=== PATIENT | male | born 1935 | race Caucasian/White ===

== ENCOUNTER 2024-05-13 08:48 | Emergency (ER) | payer MEDICARE, SELFPAY ==
[2024-05-13] VITALS (10 sets, daily range): BP systolic 113–150; BP diastolic 62–79; PULSE 70–81; RESP 16–18; TEMP 36.4–36.8; O2SAT 95–98; BMI 29.6
--- NOTE | ~2024-05-13 | CT_ITS ---
EXAMINATION: CT OF THE HEAD WITHOUT CONTRAST CT OF THE CERVICAL SPINE WITHOUT CONTRAST CLINICAL INFORMATION: Weakness. Fall.. COMPARISON: None. TECHNIQUE: Contiguous axial imaging was performed from the skullbase to vertex without intravenous administration of contrast. Coronal reformations of the head were obtained. Contiguous axial imaging was then performed from the skull base down to the thoracic inlet. Coronal and sagittal reformations of the cervical spine were obtained. This CT examination was performed using dose optimization techniques as appropriate, variously including the following: *Automated exposure control *Adjustment of mA and/or kV according to patient size (this includes techniques or standardized protocols for targeted exams where dose is matched to indication/reason for exam; i.e. extremities or head) *Use of iterative reconstruction technique DLP: CT scan of the head: 689.98 mGy-cm. CT scan of the cervical spine: 419.37 FINDINGS: CT scan of the head: There is a large right subdural hematoma along the right cerebral convexity with varying degrees of densities seen, including hyperdense components, consistent with the acute on chronic subdural hematoma. The collection measures up to 2.3 cm in thickness and causes significant mass effect upon the underlying brain with loss of the sulci and significant midline subfalcine shift from right to left by approximately 0.8 cm. There is partial effacement of the frontal horn of the right lateral ventricle and near complete effacement of the posterior horn of the right lateral ventricle. There is mild effacement of the third ventricle. There is no evidence of acute territorial infarction. Daily to white matter differentiation is well preserved. There is underlying involutional change in the brain parenchyma with enlargement of the ventricles and sulci are seen. There is no abnormal attenuation within the brain parenchyma. The osseous structures and soft tissues are normal. The mastoid air cells and visualized portions of the paranasal sinuses are well-aerated. CT scan of the cervical spine: Normal alignment is seen with no evidence of acute fracture or dislocation. Craniocervical junction and atlantoaxial articulations are intact with moderate degenerative changes seen. Prevertebral soft tissues are normal in thickness. There is moderate to severe degenerative disc disease at C4-5, see 6 7 and C7-T1 with disc space narrowing, vertebral endplate sclerosis, spurring and vacuum disc phenomenon. Mild degenerative disc disease is seen at the remaining cervical levels. There is mild to moderate facet arthropathy in the mid and lower cervical spine bilaterally. The included soft tissues of the neck and lung apices are poorly assessed due to extensive beam hardening artifact and motion artifact, but are grossly unremarkable. 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 Partial effacement of the right lateral ventricle and third ventricle noted. CT SCAN OF THE CERVICAL SPINE: 1. No evidence of cervical spine fracture or malalignment. 2. Moderate to severe degenerative disc disease and facet arthropathy in the mid and lower cervical spine. This critical result was discussed with Dr. Rebekah Johnson 05/13/2024, 12:14 PM and it was ascertained that the content and urgency of this report was understood at the time of direct communication.
--- NOTE | 2024-05-13 09:08 | ECG_ITS ---
Test Reason : FALL Blood Pressure : / mmHG Vent. Rate : 068 BPM Atrial Rate : 000 BPM P-R Int : 000 ms QRS Dur : 122 ms QT Int : 400 ms P-R-T Axes : 000 -45 116 degrees QTc Int : 425 ms Atrial fibrillation Left anterior fascicular block Minimal voltage criteria for LVH, may be normal variant ( [place] product ) Cannot rule out Inferior infarct , age undetermined Cannot rule out Anterior infarct , age undetermined ST & T wave abnormality, consider lateral ischemia Abnormal ECG No previous ECGs available Referred By: Rebekah Johnsno Electronically Signed By:LACY LEON MD
[2024-05-13 09:10] LABS: Glucose, Whole Blood 103 mg/dL (60-115)
--- NOTE | 2024-05-13 09:11 | ED_ITS ---
HPI - Weakness General Chief complaint: Fall Stated complaint: UNWIT FALL, THINNERS, +CCOLLAR Time Seen by Provider: 05/13/24 08:51 Source: patient, family, EMS and old records reviewed Mode of arrival: EMS Limitations: no limitations History of Present Illness ED Provider: CHERISE HPI Narrative: 88 yo male with PMH of HTN, afib on coumadin here with c/o feeling weak on and off today slid out of his chair and onto floor no LOC no head trauma no CP/SOB was awake and on the floor for 3 hours. He denies CP/SOB or GIB symptoms. He states he feels fine but would like to get PT and go to rehab. He lives in independent living with his daughter and here - notes he has fallen x 3 denies headstrike, daughter does not live here she is out of state, both of them report intermittent confusion and he leans when he walks MD Complaint: generalized weakness Onset (ago): week(s) (2+) Duration: constant Location: generalized Migration: none Severity: mild Relieving factors: rest Exacerbating factors: movement and exertion Associated symptoms: denies other symptoms Related Data Allergies Allergy/AdvReac Type Severity Reaction Status Date / Time No Known Allergies Allergy Verified 05/13/24 09:02 Review of Systems 2 Review of Systems: Constitutional : No Fever, No Chills, No Fatigue ENT/Mouth : No sore throat, No Rhinorrhea Eyes: No Eye Pain, No Swelling, No Redness Cardiovascular : No Chest Pain, No SOB, No Dyspnea on Exertion Respiratory : No Cough, No Sputum Gastrointestinal : No Nausea, No Vomiting, No Diarrhea, No abdominal Pain Genitourinary : No Dysuria, No Urinary Frequency, No Hematuria, Musculoskeletal : No joint pain, No Myalgias, No Joint Swelling Skin : No Skin Lesions, No rash Neuro : pos Weakness, No Numbness, No Dizziness, no Headache Psych : No Anxiety/Panic, No Depression All other systems reviewed and are negative [facility] Past Medical History Attestation statement: The following information was validated with the patient. Source: old records reviewed Medical History (Updated 05/13/24 @ 10:57 by Rebekah Johnson DO) HTN (hypertension) Afib Social History Social History Smoked in Last 30 Days: No Use of substances other than those prescribed or required for medical reasons: No Advance Directives: No Advance Directives Information Provided: No Physical Exam 2 Vital Signs: Vital Signs: Last Vital Signs Temp 98.0 F 05/13/24 12:57 Pulse 76 05/13/24 12:57 Resp 17 05/13/24 12:57 BP 132/66 05/13/24 12:57 Pulse Ox 96 05/13/24 12:57 O2 Del Method Room Air 05/13/24 12:57 BMI result Body Mass Index 29.6 Appearance: Alert. Oriented X3. No acute distress. Eyes: Pupils equal, round and reactive to light. ENT: Pharynx normal. atraumatic Neck: Normal inspection. Neck supple. no midline ttp CVS: irregular heart rate and rhythm. Pulses normal. Respiratory: No respiratory distress. Breath sounds normal. Abdomen: Soft and nontender. Skin: Skin warm and dry. Normal skin color. Normal skin turgor. Extremities: No lower extremity edema. No calf ttp Neuro: Oriented X 3. No motor deficit. No sensory deficit. 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 and has a hard time standing. he is GCS 15 he has no external signs of head trauma INR 2.9 ordered PCC to reverse SDH family aware of risks ordered given shift and SDH. Reevaluation(s) Reevaluation #1: family initially declined CT cervical spine as they did not believe he had ICH - I did show them the CT scan reads and they finally agree to cervical spine imaging Reevaluation #2: accepted to [facility] Dr. Freed will call back with [facility] bed 1224pm Reevaluation #3: no acute deficits at this time remains the same 311pm Additional Reevaluation(s): 356pm recheck exam left leg plantar and dorsiflexion intact but he really cannot lift leg - transfer center to leg NSGY PA Medications Administered Discontinued Medications Generic Name Dose Route Start Last Admin Trade Name Freq PRN Reason Stop Dose Admin Prothrombin Complex Concent ( 100 mls @ 480 mls/hr 05/13/24 10:48 05/13/24 11:55 Human) 2,500 unit/ IV IV 05/13/24 11:00 Infused Miscellaneous Supplies .Q13M ONE Infusion Medical Decision Making Medical Decision Making [facility] Narrative: 88 yo male with afib on coumadin, HTN here with c/o weakness, slide out of bed denies trauma wants to go to rehab will need labs, EKG, CT head / cspine given coumadin use (no external trauma but he is 88 yo) denies neck trauma or any other trauma. No signs of dehydration. Overall looks not toxic. Once medically cleared will refer to CM/PT. Differential Diagnosis Differential Diagnoses: The differential diagnosis associated with the presentation includes weakness, FTT Admission/Observation Consideration of admission/observation: Escalation of care including admission/observation considered call to [facility] transfer line 1150am spoke to MIGUEL ANGEL PA - agrees with shane transfer possible to [facility] 1201pm on for tomorrow for surgical intervention admit [facility] for q2 hour checks page MIGUEL ANGEL when he gets there 1214pm Consult Healthcare Provider Management of the patient was discussed with: Director Of Promotions Lab Data [facility] Lab Attestation statement: I reviewed the patient's lab results. 05/13/24 10:15 05/13/24 10:15 Labs: Lab Results 05/13/24 05/13/24 05/13/24 Range/Units 09:01 10:15 12:12 WBC 5.8 (4.8-10.8) X10*3/uL RBC 4.48 L (4.60-5.80) X10*6/uL Hgb 13.4 L (14.0-18.0) g/dl Hct 40.6 L (42.0-52.0) % MCV 90.6 (80.0-98.0) fL MCH 29.9 (27.0-33.0) pg MCHC 33.0 (31.0-36.0) g/dl RDW 13.5 (11.0-16.0) % Plt Count 118 L (160-400) X10*3/uL MPV 11.4 (9.4-12.4) fL Immature Gran % (Auto) 1.2 H (0.0-0.4) % Neut % (Auto) 50.0 (45-73) % Lymph % (Auto) 23.5 (20-40) % [place] % (Auto) 23.7 H (2-11) % Eos % (Auto) 1.4 (0-4) % Baso % (Auto) 0.2 (0-2) % Lymph # (Auto) 1.4 (1.2-4.9) X10*3/uL [place] # (Auto) 1.4 H (0.1-1.2) X10*3/uL Eos # (Auto) 0.1 (0.0-0.4) X10*3/uL Baso # (Auto) 0.0 (0.0-0.2) X10*3/uL Abs Immat Gran (auto) 0.07 H (0.00-0.03) X10*3/uL Absolute Neuts (auto) 2.9 (2.0-8.3) x10*3/uL Absolute Nucleated RBC 0.000 (0.0-0.012) X10*3/uL Nucleated RBC % (auto) 0.0 (0.0-0.2) /100WBC Smear Tech's Comments VERIFIED PT 35.6 H (11.1-13.3) SEC INR 2.9 H (0.9-1.1) Sodium 139 (135-145) mmol/L Potassium 4.4 (3.3-5.1) mmol/L Chloride 105 (96-108) mmol/L Carbon Dioxide 27 (22-29) mmol/L Anion Gap 11 L (12-20) BUN 19 H (9-16) mg/dL Creatinine 0.81 (0.5-1.4) mg/dL Estim Creat Clear Calc 71.5 Estimated GFR > 60 POC Glucose 103 (60-115) mg/dL Random Glucose 112 (60-115) mg/dL Calcium 8.9 (8.4-10.2) mg/dL Magnesium 2.1 (1.6-2.6) mg/dL Total Bilirubin 0.7 (0.0-1.0) mg/dL Direct Bilirubin 0.3 (0.0-0.5) mg/dL AST 12 (5-37) U/L ALT 14 (0-40) U/L Alkaline Phosphatase 67 (39-117) U/L Total Creatine Kinase 23 L (38-174) U/L Troponin I High Sens 4.9 (<3.5-35.0) ng/L Total Protein 6.4 L (6.5-8.0) g/dL Albumin 3.6 (3.5-5.0) g/dL Urine Color Urine Appearance Urine pH (5.0-9.0) Ur Specific [place] (1.005-1.025) Urine Protein (Neg-Trace) mg/dL Urine Glucose (UA) (Negative) mg/dL Urine Ketones (Negative) mg/dL Urine Blood (Negative) Urine Nitrite (Negative) Ur Leukocyte Esterase (Negative) COVID-19 (MARISOL) Negative (Negative) COVID-19 Clin Com See Note 05/13/24 Range/Units 13:01 WBC (4.8-10.8) X10*3/uL RBC (4.60-5.80) X10*6/uL Hgb (14.0-18.0) g/dl Hct (42.0-52.0) % MCV (80.0-98.0) fL MCH (27.0-33.0) pg MCHC (31.0-36.0) g/dl RDW (11.0-16.0) % Plt Count (160-400) X10*3/uL MPV (9.4-12.4) fL Immature Gran % (Auto) (0.0-0.4) % Neut % (Auto) (45-73) % Lymph % (Auto) (20-40) % [place] % (Auto) (2-11) % Eos % (Auto) (0-4) % Baso % (Auto) (0-2) % Lymph # (Auto) (1.2-4.9) X10*3/uL [place] # (Auto) (0.1-1.2) X10*3/uL Eos # (Auto) (0.0-0.4) X10*3/uL Baso # (Auto) (0.0-0.2) X10*3/uL Abs Immat Gran (auto) (0.00-0.03) X10*3/uL Absolute Neuts (auto) (2.0-8.3) x10*3/uL Absolute Nucleated RBC (0.0-0.012) X10*3/uL Nucleated RBC % (auto) (0.0-0.2) /100WBC Smear Tech's Comments PT (11.1-13.3) SEC INR (0.9-1.1) Sodium (135-145) mmol/L Potassium (3.3-5.1) mmol/L Chloride (96-108) mmol/L Carbon Dioxide (22-29) mmol/L Anion Gap (12-20) BUN (9-16) mg/dL Creatinine (0.5-1.4) mg/dL Estim Creat Clear Calc Estimated GFR POC Glucose (60-115) mg/dL Random Glucose (60-115) mg/dL Calcium (8.4-10.2) mg/dL Magnesium (1.6-2.6) mg/dL Total Bilirubin (0.0-1.0) mg/dL Direct Bilirubin (0.0-0.5) mg/dL AST (5-37) U/L ALT (0-40) U/L Alkaline Phosphatase (39-117) U/L Total Creatine Kinase (38-174) U/L Troponin I High Sens (<3.5-35.0) ng/L Total Protein (6.5-8.0) g/dL Albumin (3.5-5.0) g/dL Urine Color Yellow Urine Appearance Clear Urine pH 6.0 (5.0-9.0) Ur Specific [place] 1.020 (1.005-1.025) Urine Protein Trace (Neg-Trace) mg/dL Urine Glucose (UA) Negative (Negative) mg/dL Urine Ketones Negative (Negative) mg/dL Urine Blood Negative (Negative) Urine Nitrite Negative (Negative) Ur Leukocyte Esterase Negative (Negative) COVID-19 (MARISOL) (Negative) COVID-19 Clin Com Independent Interpretation I performed an independent interpretation of an: EKG and CT Scan Interpretation: Rate: 68 Rhythm: afib [place]: left Normal QRS complex. ST T wave : no TAWNYA, inverated t waves I and avl qTC: 425 prior studies: no prior The study has been interpreted contemporaneously by me. FINDINGS: CT scan of the head: There is a large right subdural hematoma along the right cerebral convexity with varying degrees of densities seen, including hyperdense components, consistent with the acute on chronic subdural hematoma. The collection measures up to 2.3 cm in thickness and causes significant mass effect upon the underlying brain with loss of the sulci and significant midline subfalcine shift from right to left by approximately 0.8 cm. There is partial effacement of the frontal horn of the right lateral ventricle and near complete effacement of the posterior horn of the right lateral ventricle. There is mild effacement of the third ventricle. There is no evidence of acute territorial infarction. Daily to white matter differentiation is well preserved. There is underlying involutional change in the brain parenchyma with enlargement of the ventricles and sulci are seen. There is no abnormal attenuation within the brain parenchyma. The osseous structures and soft tissues are normal. The mastoid air cells and visualized portions of the paranasal sinuses are well-aerated. CT scan of the cervical spine: Normal alignment is seen with no evidence of acute fracture or dislocation. Craniocervical junction and atlantoaxial articulations are intact with moderate degenerative changes seen. Prevertebral soft tissues are normal in thickness. There is moderate to severe degenerative disc disease at C4-5, see 6 7 and C7-T1 with disc space narrowing, vertebral endplate sclerosis, spurring and vacuum disc phenomenon. Mild degenerative disc disease is seen at the remaining cervical levels. There is mild to moderate facet arthropathy in the mid and lower cervical spine bilaterally. The included soft tissues of the neck and lung apices are poorly assessed due to extensive beam hardening artifact and motion artifact, but are grossly unremarkable. 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 Partial effacement of the right lateral ventricle and third ventricle noted. CT SCAN OF THE CERVICAL SPINE: 1. No evidence of cervical spine fracture or malalignment. 2. Moderate to severe degenerative disc disease and facet arthropathy in the mid and lower cervical spine. Radiology Impression Discussion of test interpretation with radiology: I discussed test interpretation with the radiologist and I have reviewed the radiologist's reading. 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 History obtained from or confirmed by: EMS Critical Care Time Critical Care Time Critical Care Time: Yes Total Critical Care Time: 60 Attestation: repeat assessments, review of imaging, reversal of coumadin, transfer to tertiary center discussion with family I attest to this time spent taking care of the patient Discharge Plan Discharge Clinical Impression: Weakness, SDH (subdural hematoma) Patient Disposition: [facility] Transfer Details: [facility] Print Language: Indonesian
[2024-05-13 10:29] LABS: INTERNATIONAL NORM RATIO 2.9 (0.9-1.1); Prothrombin Time 35.6 SEC (11.1-13.3)
[2024-05-13 10:32] LABS: Basophils Percent Auto 0.2 % (0-2); Eosinophils Absolute Auto 0.1 X10*3/uL (0.0-0.4); Eosinophils Percent Auto 1.4 % (0-4); Hematocrit 40.6 % (42.0-52.0); Hemoglobin 13.4 g/dl (14.0-18.0); Imm Gran Abs Auto 0.07 X10*3/uL (0.00-0.03); Imm Gran Pct Auto 1.2 % (0.0-0.4); Lymphocytes Absolute Auto 1.4 X10*3/uL (1.2-4.9); Lymphocytes Percent Auto 23.5 % (20-40); MANUAL DIFF FLAG SCAN; Mean Corpuscular Hemoglobin 29.9 pg (27.0-33.0); Mean Corpuscular Volume 90.6 fL (80.0-98.0); Mean Platelet Volume 11.4 fL (9.4-12.4); Monocytes Absolute Auto 1.4 X10*3/uL (0.1-1.2); Monocytes Percent Auto 23.7 % (2-11); Neutrophils Absolute Auto 2.9 x10*3/uL (2.0-8.3); Platelet Count 118 X10*3/uL (160-400); Red Blood Count 4.48 X10*6/uL (4.60-5.80); Red Cell Distribution Width 13.5 % (11.0-16.0); SCAN SMEAR FLAG 1; White Blood Count 5.8 X10*3/uL (4.8-10.8)
[2024-05-13 10:42] LABS: Alanine Aminotransferase 14 U/L (0-40); Albumin Level 3.6 g/dL (3.5-5.0); Alkaline Phosphatase 67 U/L (39-117); Anion Gap 11 (12-20); Aspartate Amino Transferase 12 U/L (5-37); Bilirubin Direct 0.3 mg/dL (0.0-0.5); Bilirubin Total 0.7 mg/dL (0.0-1.0); Blood Urea Nitrogen 19 mg/dL (9-16); Calcium 8.9 mg/dL (8.4-10.2); Carbon Dioxide 27 mmol/L (22-29); Chloride 105 mmol/L (96-108); Creatinine Clr Calc Pharmacy 71.5; Estimated Glomerular Filt Rate > 60; Glucose Random 112 mg/dL (60-115); Magnesium 2.1 mg/dL (1.6-2.6); Potassium 4.4 mmol/L (3.3-5.1); Sodium 139 mmol/L (135-145); Total Protein 6.4 g/dL (6.5-8.0)
[2024-05-13 10:46] LABS: SLIDE REVIEW VERIFIED
[2024-05-13 10:50] LABS: Troponin-I High Sensitivity 4.9 ng/L (<3.5-35.0)
--- NOTE | 2024-05-13 11:12 | PC.NURSE ---
only neuro sx family can think of is that patient has been listing left when seated.
--- NOTE | 2024-05-13 11:18 | PC.NURSE ---
last po. was sip of coffee from family aprox 1045. RN entered and stopped them
[2024-05-13] MEDS: Hum Prothrombin Cplx(PCC)4Fact 2,500 UNIT in Container,Empty 0 ML 480 UNIT IV (11:42)
[2024-05-13 12:30] LABS: COVID-19 Test Negative (Negative); IDNOW Serial# 08D9AD1C
[2024-05-13 13:14] LABS: Appearance Urine Clear; Color Urine Yellow; Glucose Urine UA Negative (Negative); Leukocyte Esterase Urine Negative (Negative); Nitrite Urine Negative (Negative); Urine Blood Negative (Negative); Urine Ketones Negative (Negative); Urine Protein Trace mg/dL (Neg-Trace)
--- NOTE | 2024-05-13 14:17 | PC.NURSE ---
no change in patient complaints. ne headache. no nausea, weakness LLE noted.
--- NOTE | 2024-05-13 14:29 | MHC.EDTECH ---
CALLED [facility]
--- NOTE | 2024-05-13 14:30 | MHC.EDTECH ---
CALL [facility] PT PLACEMENT SPOKE WITH YOEL THEY STILL DON'T HAVE BEDS
--- NOTE | 2024-05-13 16:07 | PC.NURSE ---
NO neuro changed. only neuro deficit except LLE weakness.
[2024-05-13 16:22] LABS: Glucose, Whole Blood 101 mg/dL (60-115)
[2024-05-13] MEDS: 0.9 % Sodium Chloride 1,000 ML 80 ML IVCONT (17:10)
[2024-05-13] MEDS: Metoprolol Tartrate 25 MG TABLET PO (17:55)
[2024-05-13] MEDS: lisinopriL 20 MG TABLET PO (17:55)
--- NOTE | 2024-05-13 18:50 | PC.NURSE ---
rn to rn kyrie Garcia at [facility]. Bed is changing and EMS has to wait. kid club attendant aware.
== END 2024-05-13 19:35 | disposition short-term general hospital (02) ==
PROVIDERS: Emergency Provider Emergency Medicine; PCP Internal Medicine
DX: S06.5X0A Traumatic subdural hemorrhage without loss of consciousness, initial encounter (principal); R51.9 Headache, unspecified; M54.2 Cervicalgia; I48.91 Unspecified atrial fibrillation; I10 Essential (primary) hypertension; R53.83 Other fatigue; W07.XXXA Fall from chair, initial encounter; Y93.9 Activity, unspecified; Y92.008 Other place in unspecified non-institutional (private) residence as the place of occurrence of the external cause; Y99.8 Other external cause status; Z79.01 Long term (current) use of anticoagulants; Z91.81 History of falling; Z11.52 Encounter for screening for COVID-19; Z79.899 Other long term (current) drug therapy
CPT/HCPCS: 36415; 70450; 72125; 80048; 80076; 81003; 82550; 82947; 83735; 84484; 85025; 85610; 87635; 93005; 96360; 96361; 96365; 99285; J7168

== ENCOUNTER → 2024-05-13 09:08 | Outpatient (BNV) | payer MEDICARE, SELFPAY | PROVIDERS: Emergency Provider Emergency Medicine; PCP Internal Medicine; Visit Provider Internal Medicine Cardiovascular Disease | DX: R94.31 Abnormal electrocardiogram [ECG] [EKG] (principal) | CPT/HCPCS: 93010 ==

== ENCOUNTER 2025-07-22 10:45 | Emergency (ER) | payer MEDICARE, SELFPAY ==
--- NOTE | ~2025-07-22 | XR_ITS ---
EXAMINATION: XR CHEST CLINICAL INFORMATION: weakness COMPARISON: None available. TECHNIQUE: Frontal view of the chest was obtained. FINDINGS: There is cardiomegaly. Mediastinal contours appear normal. Aortic mural calcifications. There is vascular congestion in the hilar regions bilaterally. Lungs demonstrate hazy interstitial markings bilaterally with Rj B lines in the lateral lung bases, suggesting interstitial edema. There is linear atelectasis or scarring in the left midlung. No pneumothorax or effusion. No focal osseous or soft tissue abnormality. There are degenerative changes in both shoulder joints and throughout the spine. XR/XR chest 1V IMPRESSION: 1. Cardiomegaly with mild interstitial pulmonary edema. No focal pneumonia. Electronically signed by: Rafi Read MD 07/22/2025 12:42 PM EDT
--- NOTE | ~2025-07-22 | CT_ITS ---
EXAMINATION: CT CERVICAL SPINE WITHOUT CONTRAST CLINICAL INFORMATION: Following week ago with persistent neck pain COMPARISON: May 13, 2024 TECHNIQUE: Axial imaging was performed from the base of the skull through T2 without IV contrast. Coronal and sagittal reformatted images were generated from the original axial data set. ALARA: The examination used one or more of the following radiation dose reduction techniques: Automated exposure control, iterative reconstruction, and/or adjustment of mA and/or KV. FINDINGS: There is no prevertebral soft tissue edema. Again noted are multilevel degenerative changes with disc space narrowing most advanced at C6-7 and facet arthropathy most advanced between C3-C5 and C7-T1. No fracture lines are evident. CT/CT cervical spine wo IV con IMPRESSION: Moderate to severe degenerative changes have slightly progressed since the prior. No acute fracture is identified. Electronically signed by: Jacob Howell MD 07/22/2025 12:32 PM EDT
--- NOTE | ~2025-07-22 | CT_ITS ---
EXAMINATION: CT HEAD WITHOUT CONTRAST CLINICAL INFORMATION: Fall one week prior. Rule out bleed, stroke. COMPARISON: 05/13/2024. TECHNIQUE: Contiguous axial imaging was performed from the skull base to vertex without intravenous administration of contrast. This CT examination was performed using dose optimization techniques as appropriate, variously including the following: *Automated exposure control *Adjustment of mA and/or kV according to patient size (this includes techniques or standardized protocols for targeted exams where dose is matched to indication/reason for exam; i.e. extremities or head) *Use of iterative reconstruction technique FINDINGS: There is a very subtle low attenuating right frontal extra-axial fluid collection measuring 2 mm in thickness. There is otherwise no additional evidence of intracranial hemorrhage or extra-axial fluid collection. There is no mass effect, or edema. No CT evidence of acute territorial infarct. Ventricles, sulci, and cisterns are diffusely somewhat prominent, in keeping with age-related cerebral and cerebellar involutional changes. No hydrocephalus. No midline shift. Negative hyperdense MCA sign. Negative insular ribbon sign. Patchy periventricular and deep white matter hypoattenuation is consistent with moderate small vessel ischemic changes. Normal pituitary. Atheromatous calcification of the bilateral carotid siphons and V4 segments vertebral arteries bilaterally. Globes and orbital contents image normally. There are bilateral lens replacements. There are ciliary body calcifications. No extracranial soft tissue abnormalities. The paranasal sinuses, mastoid air cells, and tympanic cavities are normally aerated. No suspicious bony abnormalities. There has been a right parietal craniotomy. There are no acute fractures evident. CT/CT head/brain wo IV con IMPRESSION: 1. Extremely subtle low attenuating right frontal subdural collection measuring 2 mm in thickness. No hyperattenuating component to suggest acute hemorrhage. Unknown if this is chronic sequela from prior subdural hematomas, or represents a more acute process. 2. Otherwise, no additional extra-axial fluid collection or acute intracranial hemorrhage. 3. There has been a right frontoparietal craniotomy. Electronically signed by: Rafi Read MD 07/22/2025 12:34 PM EDT
[2025-07-22 10:58] VITALS: BP 118/80; PULSE 85; O2SAT 94
[2025-07-22 11:00] VITALS: PULSE 90; RESP 18; TEMP 36.7; O2SAT 94; BMI 28.1
[2025-07-22 11:09] VITALS: PULSE 90; RESP 18; TEMP 36.7; O2SAT 94
--- NOTE | 2025-07-22 11:16 | ECG_ITS ---
Test Reason : WEAKNESS Blood Pressure : */* mmHG Vent. Rate : 76 BPM Atrial Rate : * BPM P-R Int : * ms QRS Dur : 132 ms QT Int : 418 ms P-R-T Axes : * -72 75 degrees QTcB Int : 470 ms Atrial fibrillation Left axis deviation Non-specific intra-ventricular conduction block Abnormal ECG When compared with ECG of 13-May-2024 08:59, Nonspecific T wave abnormality has replaced inverted T waves in Lateral leads Referred By: Generic ED Physician Electronically Signed By: Augustine Delgado
--- NOTE | 2025-07-22 11:22 | ED_ITS ---
HPI - Weakness General Chief complaint: Weakness Stated complaint: FALL 1WK,HIT HEAD,REF TX,NOW WEAK EXTREMITIES Time Seen by Provider: 07/22/25 11:22 Source: patient Mode of arrival: EMS Limitations: no limitations History of Present Illness ED Provider: Dr. 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 Patient states he has been feeling weak for proximally 2-3 weeks prior. Both the and his could not recount the exact date of the fall. According to his the patient has had progressive weakness of the past several weeks. The patient does have a home occupational therapist. Patient states that over the last 3 weeks he has noticed increased weakness in his lower extremities whenever he walks 10-15 feet. The occupational therapist evaluated him today and was concerned about his recent fall in his worsening weakness therefore she advised the to call an ambulance and have the patient brought to the emergency department. Patient states that he does have some mild shortness of breath at rest and mild dyspnea on exertion. Patient is on warfarin for his atrial fibrillation. The also states the patient has a heart murmur that has managed by their PCP and business services sales representative, Dr. Corey. He denied fever, chills, cough, chest pain, shortness of breath, nausea, vomiting, diarrhea. He denied dysuria and he states that occasionally has urinary incontinence and urinary frequency especially at night. Related Data Allergies Allergy/AdvReac Type Severity Reaction Status Date / Time No Known Allergies Allergy Verified 07/22/25 11:07 Review of Systems 2 Review of Systems: Yes all other systems are reviewed and are negative FOR[facility]LY [facility] Past Medical History Medical History (Updated 07/22/25 @ 15:06 by Hema Tanner MD) HTN (hypertension) Afib Social History Social History Alcohol intake: current Alcohol type: wine Smoked in Last 30 Days: No Use of substances other than those prescribed or required for medical reasons: No Advance Directives: No Advance Directives Information Provided: Yes Do you have a plan to hurt others: No Plan Physical Exam 2 Vital Signs: Vital Signs: Last Vital Signs Temp 98.0 F 07/22/25 11:09 Pulse 90 07/22/25 11:09 Resp 18 07/22/25 11:09 Pulse Ox 94 07/22/25 11:09 O2 Del Method Room Air 07/22/25 11:09 BMI result Body Mass Index 28.1 Vital signs were normal Exam: General: Awake, alert in no distress Head: Normocephalic, patient has ecchymosis to his left lateral orbit, no tenderness palpation of the area, no tenderness palpation of his zygomatic arch. No other areas of ecchymosis or hematomas on his head or scalp EENT: PERRL, sclera and conjunctiva are normal, mouth with no erythema or exudates Neck: Supple, no adenopathy Lung: breath sounds symmetric, no wheezing, no rales and no rhonchi Chest: symmetric movement, nontender Heart: regular rate and rhythm, normal S1, S2, 3/6 systolic murmur best heard at right upper sternal border but heard diffusely throughout the precordium Abdomen: soft, non-tender, nondistended, normal bowel sounds Back: no vertebral tenderness, no CVAT Extremities: no deformities, moves all extremities symmetrically, no edema Neuro: General: ?Awake, alert, oriented, normal speech Cranial nerves: ?Cranial nerves 2 through 12?intact Strength: ?Moves all extremities symmetrically, strength 5/5 Psych: Pleasant, cooperative Medical Decision Making Medical Decision Making MDM Narrative: 88-year-old male with a history HTN, afib on coumadin, 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 Patient states he has been feeling weak for proximally 2-3 weeks prior. Both the and his could not recount the exact date of the fall. According to his the patient has had progressive weakness of the past several weeks. The patient does have a home occupational therapist. Patient states that over the last 3 weeks he has noticed increased weakness in his lower extremities whenever he walks 10-15 feet. The occupational therapist evaluated him today and was concerned about his recent fall in his worsening weakness therefore she advised the to call an ambulance and have the patient brought to the emergency department. Patient states that he does have some mild shortness of breath at rest and mild dyspnea on exertion. Patient is on warfarin for his atrial fibrillation. The also states the patient has a heart murmur that has managed by their PCP and business services sales representative, Dr. Corey. He denied fever, chills, cough, chest pain, shortness of breath, nausea, vomiting, diarrhea. He denied dysuria and he states that occasionally has urinary incontinence and urinary frequency especially at night. Differential diagnosis: ?Includes but is not limited to closed head injury, skull fracture, intracranial bleed, stroke, urinary tract infection, anemia, electrolyte abnormality Course: 14:46 My independent interpretation of the patient laboratory evaluation is as follows: WBC normal 6600. H&H normal 13.6 and 42. 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 PTT and INR therapeutic at 33.3 and 2.9. Chloride low 109. BUN elevated 20 with a normal creatinine of 0.79. LFTs were normal. Urinalysis positive for protein. Microscopic revealed Chest x-ray revealed cardiomegaly with mild interstitial pulmonary edema with no focal infiltrates. Twelve EKG is consistent with atrial fibrillation with a controlled ventricular rate. The patient does have a loud systolic murmur heard throughout the precordium and increased of the right upper sternal border, there I am concerned that the patient may have aortic stenosis which may be causing his weakness. CT scan of the brain radiology impression is as follows: Extremely subtle low attenuating right frontal subdural collection measuring 2 mm in thickness. No hyperattenuating component to suggest acute hemorrhage. Unknown if this is chronic sequela from prior subdural hematomas, or represents a more acute process 15:00 I did discuss the patient's presentation with the trauma surgeon, Dr. Gordon at [facility]. He recommended reversing the patient's INR with Kcentra therefore I ordered Kcentra 2500 units IV. I also ordered vitamin K [address] Gordon recommended that the patient be sent to the [facility] Emergency Department as a trauma transfer. The patient will be transferred via ALS ambulance. The patient may need medical admission for further evaluation of his cardiomegaly and mild pulmonary edema Differential Diagnosis Differential Diagnoses: The differential diagnosis associated with the presentation includes (See above) Admission/Observation Consideration of admission/observation: Escalation of care including admission/observation considered (Yes) Consult Healthcare Provider Management of the patient was discussed with: Warehouse General Laborer (Dr. Gordon, trauma surgeon at [facility]) Lab Data MDM Lab Attestation statement: I reviewed the patient's lab results. 07/22/25 12:40 07/22/25 12:40 Labs: Lab Results 07/22/25 07/22/25 Range/Units 12:40 13:36 WBC 6.6 (4.8-10.8) X10*3/uL RBC 4.61 (4.60-5.80) X10*6/uL Hgb 13.6 L (14.0-18.0) g/dl Hct 42.0 (42.0-52.0) % MCV 91.1 (80.0-98.0) fL MCH 29.5 (27.0-33.0) pg MCHC 32.4 (31.0-36.0) g/dl RDW 14.3 (11.0-16.0) % Plt Count 147 L (160-400) X10*3/uL MPV 11.1 (9.4-12.4) fL Immature Gran % (Auto) Cancelled Neut % (Auto) Cancelled Lymph % (Auto) Cancelled [place] % (Auto) Cancelled Eos % (Auto) Cancelled Baso % (Auto) Cancelled Lymph # (Auto) Cancelled [place] # (Auto) Cancelled Eos # (Auto) Cancelled Baso # (Auto) Cancelled Abs Immat Gran (auto) Cancelled Absolute Neuts (auto) Cancelled Absolute Nucleated RBC 0.000 (0.0-0.012) X10*3/uL Nucleated RBC % (auto) 0.0 (0.0-0.2) /100WBC Neutrophils % (Manual) 51 (45-73) % Band Neutrophils % 0 L (3-5) % Lymphocytes % (Manual) 15 L (20-40) % Atypical Lymphs % (Man) 4 (0-6) % Monocytes % (Manual) 28 H (2-11) % Eosinophils % (Manual) 2 (0-4) % Abs Neuts (Manual) 3.4 (2.0-8.3) X10*3/uL Lymphocytes # (Manual) 1.0 L (1.2-4.9) X10*3/uL Atyp Lymphs # (Manual) 0.3 x10*3/uL Monocytes # (Manual) 1.8 H (0.1-1.2) X10*3/uL Eosinophils # (Manual) 0.1 (0.0-0.4) X10*3/uL Smudge Cells PRESENT Toxic Vacuolation PRESENT Platelet Estimate NORMAL (NORMAL) Large Platelets PRESENT Plt Morphology Comment NOTED RBC Morphology NORMAL PT 33.3 H (10.9-12.4) SEC INR 2.9 H (0.9-1.1) APTT 41.8 H (26.7-34.1) SEC Sodium 141 (135-145) mmol/L Potassium 4.1 (3.3-5.1) mmol/L Chloride 109 H (96-108) mmol/L Carbon Dioxide 26 (22-29) mmol/L Anion Gap 10 L (12-20) BUN 20 H (9-16) mg/dL Creatinine 0.79 (0.5-1.4) mg/dL Estim Creat Clear Calc 76.9 Estimated GFR > 60 Random Glucose 94 (60-115) mg/dL Calcium 8.5 (8.4-10.2) mg/dL Total Bilirubin 0.6 (0.0-1.0) mg/dL AST 21 (5-37) U/L ALT 21 (0-40) U/L Alkaline Phosphatase 78 (39-117) U/L Total Protein 6.5 (6.5-8.0) g/dL Albumin 3.9 (3.5-5.0) g/dL Urine Color Yellow Urine Appearance Clear Urine pH 6.0 (5.0-9.0) Ur Specific Jelm 1.015 (1.005-1.025) Urine Protein 30 (1+) H (Neg-Trace) mg/dL Urine Glucose (UA) Negative (Negative) mg/dL Urine Ketones Negative (Negative) mg/dL Urine Blood Negative (Negative) Urine Nitrite Negative (Negative) Ur Leukocyte Esterase Negative (Negative) Urine RBC 0-2 (0-2) /HPF Urine WBC 0-5 (0-5) /HPF Ur Squamous Epith Cells 0-2 (0-2) /HPF Urine Bacteria None Seen (None Seen) Hyaline Casts 0-2 (0-2) /LPF Independent Interpretation I performed an independent interpretation of an: EKG Interpretation: My independent interpretation patient's 12 EKG done on 07/22/2025 at 12:21 hours is as follows: Atrial fibrillation with a rate of 76, prolonged QRS duration of 132 milliseconds, normal QTC of 470 milliseconds nonspecific intraventricular conduction block no ST segment elevation, no ST segment depression, no significant T-wave abnormalities. Radiology Impression Discussion of test interpretation with radiology: I discussed test interpretation with the radiologist and I have reviewed the radiologist's reading. Radiologist Impression: CT head/brain wo IV con IMPRESSION: 1. Extremely subtle low attenuating right frontal subdural collection measuring 2 mm in thickness. No hyperattenuating component to suggest acute hemorrhage. Unknown if this is chronic sequela from prior subdural hematomas, or represents a more acute process. 2. Otherwise, no additional extra-axial fluid collection or acute intracranial hemorrhage. 3. There has been a right frontoparietal craniotomy. Electronically signed by: Rafi Read MD 07/22/2025 12:[address] cervical spine wo IV con IMPRESSION: Moderate to severe degenerative changes have slightly progressed since the prior. No acute fracture is identified. Electronically signed by: Jacob Howell MD 07/22/2025 12:32 PM EDT XR chest 1V IMPRESSION: 1. Cardiomegaly with mild interstitial pulmonary edema. No focal pneumonia. Electronically signed by: Rafi Read MD 07/22/2025 12:42 PM EDT Independent Historian Clinical information obtained from an independent historian. History obtained from or confirmed by: Spouse and Other (Ken's) Critical Care Time Critical Care Time Critical Care Time: Yes Total Critical Care Time: 80 Attestation: Critical Care: The patient was critically ill with a high probability of imminent or life threatening deterioration. I spent greater than 30 minutes of discontinuous time evaluating the patient,delivering critical care at the bedside, discussing and evaluating pertinent data with consultants. Critical care time does not include time spent performing separately billable procedures or teaching. Total time spent performing critical care was 80 minutes. Discharge Plan Discharge Clinical Impression: Subdural bleeding, Weakness, Head injury, History of Coumadin therapy, Cardiomegaly, Pulmonary edema, Aortic heart murmur Patient Disposition: [facility] Transfer Details: [facility] ED to ED, accepting physician, trauma attending Dr. Gordon Print Language: Kenyan
[2025-07-22 12:46] LABS: Hematocrit 42.0 % (42.0-52.0); Hemoglobin 13.6 g/dl (14.0-18.0); Mean Corpuscular HGB Conc 32.4 g/dl (31.0-36.0); Mean Corpuscular Hemoglobin 29.5 pg (27.0-33.0); Mean Corpuscular Volume 91.1 fL (80.0-98.0); NRBC Abs Auto 0.000 X10*3/uL (0.0-0.012); NRBC Pct Auto 0.0 /100WBC (0.0-0.2); Platelet Count 147 X10*3/uL (160-400); Red Blood Count 4.61 X10*6/uL (4.60-5.80)
[2025-07-22 12:54] LABS: INTERNATIONAL NORM RATIO 2.9 (0.9-1.1); Prothrombin Time 33.3 SEC (10.9-12.4)
[2025-07-22 13:01] LABS: WBC ABN SCTR FOR CBC 1
[2025-07-22 13:08] LABS: Alanine Aminotransferase 21 U/L (0-40); Albumin Level 3.9 g/dL (3.5-5.0); Alkaline Phosphatase 78 U/L (39-117); Anion Gap 10 (12-20); Aspartate Amino Transferase 21 U/L (5-37); Blood Urea Nitrogen 20 mg/dL (9-16); Calcium 8.5 mg/dL (8.4-10.2); Carbon Dioxide 26 mmol/L (22-29); Chloride 109 mmol/L (96-108); Creatinine Clr Calc Pharmacy 76.9; Estimated Glomerular Filt Rate > 60; Potassium 4.1 mmol/L (3.3-5.1); Sodium 141 mmol/L (135-145); Total Protein 6.5 g/dL (6.5-8.0)
--- OUTSIDE RECORDS SUMMARY | 2025-07-22 13:33 | XMS_ITS | Encounter Summary ---
Author Organization [facility] Address [address] [place] [address] Encounters * CPT with Medical [facility] at [facility] on 2025-06-06 { reasonForRequest : Breathing problem, when breathing sometimes the patient wheezes. Wants lungs checked out. , patientReports : , denies :[ Increased work of breathing/labored with or without fever , Unable to speak in full sentences without distress , Discoloration of skin -cyanosis , Needs to sleep sitting up, can t catch breath , Shortness of breath in setting of confusion ], chi efComplaints : Breathing Problems , pmh : Arrhythmias (e.g., Atrial Fi brillation), Pneumonia, Hypertension , allergies : No Known Drug Allergies , otherAllergies : , painAssessment : , visitOutcome& quot;: , additionalComments : 89 y.o male complains of Breathing Problems\ nPatient's calling reporting patient has been wheezing on and off and she would like patient evaluated. reports wheezing has been intermittent and on going for while, reports patient had a chest Xray in March. reports patient seems to be having more wheezing recently. statespatient was exercising today with physical therapist and had increased weakness during exertion. Patient reportedly speaking in full, complete sentences per 's reports. denies any known fever or chills. reports patient sleeps on his side, which is his normal position of comfort for sleep. Patient with no reported history of COPD or asthma. I provided information on the mobile health provider response time and advised the patient and/or caregiver to monitor reported signs and symptoms. I discussed the warning signs of when to seek emergency care -Chuck Guzman RN } [facility] dispatched [address] [facility], [address] [place] [address] for wheezing. Pt c/o wheezing and cough that startslater in the evening and at night. Pt states he spits up white mucous and had been fatigued latelty. Patient is alert and oriented to baseline. Pt skin pink, warm and dry. Pt denies fever or chills. Pt denies light headedness, dizziness, headache, and vision changes. Pt skin pink, warm, and dry. Pt denies shortness of breath and LS are clear bilaterally. Patient denies chest pain and heart sounds were normal, rate is regular. Patient denies abd pain and abd was soft and non- tender in all 4 quadrants. Pt denies nausea, vomiting and diarrhea. Pt states intake and output is normal. Patients lower extremities show 2+ edema. [facility] was consulted and the assessment was shared. Pt advised to follow up with PCP next week for further evaluation. SC2 clears without incident. ORAL_MEDICATION, POC_FLU_STREP, COVID_TEST Written by Medical inst[facility] on 2025-06-06
--- OUTSIDE RECORDS SUMMARY | 2025-07-22 13:33 | XMS_ITS | Continuity of Care Document ---
Author Name [facility], Medical Address [address] [place] [id number] Organization Unknown Address [address] [place] [id number] Medications No known medications Problems No known problems
--- OUTSIDE RECORDS SUMMARY | 2025-07-22 13:33 | XMS_ITS | Encounter Summary ---
Author Organization [facility] Address [address] [place] [address] Encounters * CPT with Medical instED at [facility] on 2025-07-18 { reasonForRequest : Pt's requesting a checkup>fell out of bed 1 week ago> pt has a neurological work-up , patientReports : , denies :["Worst Headache of life , New onset of vision loss , Sudden onset -unilateral w eakness/gait disturbance , Fall with head strike and altered LOC , New onset of Slurred speech or difficulty finding words , Sudden Mental status changes , Hea d pain with fever chills and neck pain , Seizure activity ], chiefComplaints&quo t;: Falls , pmh : Arrhythmias (e.g., Atrial Fibrillation), Pneumonia, Hyper tension, Stroke , allergies : No Known Drug Allergies , otherAllergies : , painAssessment : , visitOutcome : ,"additionalComments : 89 y.o male complains of Falls\nPatient's calling reportingher fell out of bed approx one week ago. Patient's reports physical therapist out today and advised to get an evaluation of patient's neuro status. reports that patient primarily uses a wheelchair, but reports patient is speaking and walking slower then normal. reports patient did strike his head when he fell and patient is on Coumadin. Reviewed with any time a patient is on blood thinners and hits their head the patient should be evaluated in the ER and have imaging done. Patient with no reported fever or chills. reports patient is coherent and speech isat baseline. I provided information on the mobile health provider response time and advised the patient and/or caregiver to monitor reported signs and symptoms. I discussed the warning signs of when to seek emergency care -Chuck Guzman RN } Dispatched to the call address for the male who fell and is requesting an evaluation. Pt states he fell getting out of bed last Monday and struck his face (cheek area) on the night stand. He and his deny LOC. They called an ambulance to assist him back up from the floor but did not go to the ED. Pt denies headaches, vision changes, dizziness, black or bloody stools/vomit, head/neck/back pain, difficulty ambulating, chest pain, diff breathing, fevers or any other complaints at this time. Ptstates he has been eating and drinking at his baseline, feels his normal self and has no complaints. Pts states the only reason they called was because their daughter told them he needed to be checked out when she discovered that he fell. Pt was found sitting in wheel chair, CAOx4, airway open and patent, breathing non labored, able to speak in full sentences, -JVD, small bruising to left anterior of face around cheek bone otherwise head unremarkable, skin PWD with good turgor, mucous membranes pink and moist, pupils PERRL, FAST ED 0, speech clear and without slurring or stuttering, +CMSx4, -edema/swelling, afebrile, lungs CTA, abd soft non tender/distended, -spinal stepoff/tenderness, extremities with full ROM. Evaluation. Pt was assessed. Pt and advised that imaging is the only way to rule out a bleed and that there is a chance he has a small bleed and just has not shown any symptoms yet. [facility] consulted. [facility] endorsed getting imaging done. Pt advised that the ED would be the quickest and easiest way to get the imaging done. Pts advised they would call his PCP to try and arrange out patient imaging and if no t they would decide on the ED. Red flags discussed. ALL times are approx. IV_(FLUIDS_AND/OR_MEDICATION), MEDICATION_IM, EKG, GLUCOSE, ORTHOSTATIC_VITAL_SIGNS Written by Medical inst[facility] on 2025-07-18
--- OUTSIDE RECORDS SUMMARY | 2025-07-22 13:33 | XMS_ITS | Continuity of Care Document ---
Author Name [facility], Medical Address [address] [place] [id number] Organization Unknown Address [address] [place] [id number] Medications No known medications Problems No known problems
[2025-07-22 13:37] LABS: Atypical Lymphs Percent Manual 4 % (0-6); Band Neutrophils Percent 0 % (3-5); Eosinophils Percent Manual 2 % (0-4); Lymphocytes Percent Manual 15 % (20-40); Monocytes Percent Manual 28 % (2-11); Neutrophils Percent Manual 51 % (45-73)
[2025-07-22 13:38] LABS: Large Platelet PRESENT; RBC Morphology NORMAL
[2025-07-22 13:39] LABS: Smudge Cells PRESENT; Toxic Vacuolation PRESENT
[2025-07-22 13:40] LABS: Atypical Lymph Absolute Manual 0.3 x10*3/uL; Eosinophils Absolute Manual 0.1 X10*3/uL (0.0-0.4); Lymphocytes Absolute Manual 1.0 X10*3/uL (1.2-4.9); Monocytes Absolute Manual 1.8 X10*3/uL (0.1-1.2); Neutrophils Absolute Manual 3.4 X10*3/uL (2.0-8.3); White Blood Count 6.6 X10*3/uL (4.8-10.8)
[2025-07-22 13:48] LABS: Appearance Urine Clear; Glucose Urine UA Negative (Negative); PH 6.0 (5.0-9.0); Specific Gravity - Urine 1.015 (1.005-1.025); UMIC TRIGGER UACC YES
[2025-07-22 15:07] LABS: Partial Thromboplastin Time 41.8 SEC (26.7-34.1)
[2025-07-22 15:33] LABS: Troponin-I High Sensitivity 7.9 ng/L (<3.5-35.0)
[2025-07-22 15:50] VITALS: BP 143/79; PULSE 82; RESP 16; O2SAT 95
[2025-07-22] MEDS: Hum Prothrombin Cplx(PCC)4Fact 2,500 UNIT in Container,Empty 0 ML 480 UNIT IV (15:58)
[2025-07-22] MEDS: Phytonadione (Vit K1) Oral 10 MG/ML AMPUL PO (16:04)
--- NOTE | 2025-07-22 16:13 | PC.NURSE ---
attempting to call report to [facility], on hold.
--- NOTE | 2025-07-22 16:17 | PC.NURSE ---
Unable to make contact with [facility] ER to call report to staff. EMS picked up patient.
[2025-07-22 16:19] VITALS: BP 143/79; PULSE 82; RESP 16; TEMP 36.6; O2SAT 95
== END 2025-07-22 16:21 | disposition short-term general hospital (02) ==
PROVIDERS: Emergency Provider Emergency Medicine Emergency Medical Services; PCP Internal Medicine
DX: S06.5XAA Traumatic subdural hemorrhage with loss of consciousness status unknown, initial encounter (principal); I51.7 Cardiomegaly; J81.1 Chronic pulmonary edema; R01.1 Cardiac murmur, unspecified; R53.1 Weakness; D69.6 Thrombocytopenia, unspecified; R06.02 Shortness of breath; I48.91 Unspecified atrial fibrillation; M54.2 Cervicalgia; R51.9 Headache, unspecified; W19.XXXA Unspecified fall, initial encounter; Y93.9 Activity, unspecified; Y92.9 Unspecified place or not applicable; Y99.8 Other external cause status; Z79.899 Other long term (current) drug therapy; Z79.01 Long term (current) use of anticoagulants; Z91.81 History of falling
CPT/HCPCS: 36415; 70450; 71045; 72125; 80053; 81001; 84484; 85007; 85025; 85027; 85610; 85730; 93005; 99285; 99291; 99292; J7168

== ENCOUNTER → 2025-07-22 11:16 | Outpatient (BNV) | payer MEDICARE, SELFPAY | PROVIDERS: Emergency Provider Emergency Medicine Emergency Medical Services; PCP Internal Medicine; Visit Provider Radiology Diagnostic Radiology | DX: M50.30 Other cervical disc degeneration, unspecified cervical region (principal); I63.9 Cerebral infarction, unspecified; R53.1 Weakness; I51.7 Cardiomegaly; J81.0 Acute pulmonary edema; W19.XXXA Unspecified fall, initial encounter | CPT/HCPCS: 70450; 71045; 72125 ==

== ENCOUNTER → 2025-07-22 11:16 | Outpatient (BNV) | payer MEDICARE, SELFPAY | PROVIDERS: Emergency Provider Emergency Medicine Emergency Medical Services; PCP Internal Medicine; Visit Provider Internal Medicine Cardiovascular Disease | DX: I48.91 Unspecified atrial fibrillation (principal); I45.4 Nonspecific intraventricular block | CPT/HCPCS: 93010 ==